=== PATIENT | male | born 1990 | race American Indian/Alaskan Native ===

== ENCOUNTER 2017-12-06 19:58 | Emergency (ER) | payer MEDICAID ==
[2017-12-06 20:35] LABS: Basophils % (Auto) 0.3 % (0.0-1.8); Eosinophils # (Auto) 0.2 K/mm3 (0.0-0.4); Hematocrit 47.6 % (35.5-45.6); Hemoglobin 15.9 gm/dl (11.8-15.2); Lymphocytes # (Auto) 2.7 K/mm3 (1.2-5.4); Lymphocytes % (Auto) 30.1 % (13.4-35.0); Mean Corpuscular HGB Conc 33 % (32-34); Mean Corpuscular Hemoglobin 28 pg (28-32); Mean Corpuscular Volume 85 fl (84-94); Monocytes # (Auto) 0.5 K/mm3 (0.0-0.8); Monocytes % (Auto) 5.2 % (0.0-7.3); Platelet Count 184 K/mm3 (140-440); Red Blood Count 5.62 M/mm3 (3.65-5.03); Red Cell Distribution Width 14.9 % (13.2-15.2)
[2017-12-06 21:01] LABS: BUN/Creatinine Ratio 18; Blood Urea Nitrogen 18 mg/dL (9-20); Calcium 9.9 mg/dL (8.4-10.2); Hemolysis Index 18
--- NOTE | 2017-12-07 10:09 | Emergency Department Report ---
ED Psych HPI - General Chief Complaint: Psych Stated Complaint: PATIENT WANTS TO KILL HIMSELF Time Seen by Provider: 12/07/17 06:28 Source: patient Mode of arrival: Ambulatory - History of Present Illness Initial Comments: This is a 27-year-old patient who arrives in the emergency department with a suitcase but denies homelessness. He states that he has been previously admitted to a psychiatric facility in [place] within the last few months. Apparently he has self-inflicted abrasions to his left arm. He simply points to his arm and states "psych[facility] hospital". He does not want to provide any further information to me. However he did tell the mental health counselor that he wanted to kill himself by walking into traffic. Apparently he's been suffering from chronic depression. He states that he has medicine for that and that he has been taking it. He did not provide any specifics as to his medical regimen however. MD Complaint: suicidal ideation, feels depressed -: month(s), year(s) Associated Psychiatric Symptoms: suicidal ideation History of same: Yes Quality: intermittent Improves With: none Worsens With: none Treatments Prior to Arrival: none If Self Harm: admits thoughts of - Related Data Home Medications Medication Instructions Recorded Confirmed Last Taken Amitriptyline [Elavil] 100 mg PO QHS 12/07/17 12/07/17 Unknown Herminie Carbonate 300 mg PO BID 12/07/17 12/07/17 Unknown clonazePAM 2 mg PO BID 12/07/17 12/07/17 Unknown Allergies Allergy/AdvReac Type Severity Reaction Status Date / Time No Known Allergies Allergy Unverified 12/06/17 20:05 ED Review of Systems ROS: Stated complaint: PATIENT WANTS TO KILL HIMSELF Other details as noted in HPI Comment: Unobtainable due to pts medical conditions ED Past Medical Hx - Past Medical History Previous Medical History?: Yes Hx Kidney Stones: Yes Hx Psychiatric Treatment: Yes (bipolar 2 with psychosis,borderline personality disorder, panic disorder PT) Hx HIV: Yes Additional medical history: PTSD, Anorexia, - Social History Smoking Status: Former Smoker Substance Use Type: None - Medications Home Medications: Home Medications Medication Instructions Recorded Confirmed Last Taken Type Amitriptyline [Elavil] 100 mg PO QHS 12/07/17 12/07/17 Unknown History Herminie Carbonate 300 mg PO BID 12/07/17 12/07/17 Unknown History clonazePAM 2 mg PO BID 12/07/17 12/07/17 Unknown History ED Physical Exam - General Limitations: No Limitations General appearance: alert, in no apparent distress - Head Head exam: Present: atraumatic, normocephalic - Eye Eye exam: Present: normal appearance, PERRL, EOMI. Absent: scleral icterus - ENT ENT exam: Present: mucous membranes moist - Neck Neck exam: Present: normal inspection. Absent: tenderness, meningismus - Respiratory Respiratory exam: Present: normal lung sounds bilaterally. Absent: respiratory distress - Cardiovascular Cardiovascular Exam: Present: regular rate, normal rhythm. Absent: systolic murmur, diastolic murmur, rubs, gallop - GI/Abdominal GI/Abdominal exam: Present: soft, normal bowel sounds. Absent: distended, tenderness, guarding, rebound, rigid - Rectal Rectal exam: Present: deferred - Extremities Exam Extremities exam: Present: other (there are 2 very superficial linear abrasions of the left forearm. The dermis is intact.) - Back Exam Back exam: Present: normal inspection - Neurological Exam Neurological exam: Present: oriented X3, CN II-XII intact. Absent: alert ( lethargic versus uncooperative), motor sensory deficit - Psychiatric Psychiatric exam: Present: depressed, flat affect - Skin Skin exam: Present: warm, dry, intact, normal color. Absent: rash ED Course Vital Signs 12/06/17 12/06/17 12/07/17 20:00 20:05 09:03 Temperature 97.9 F 97.9 F 97.4 F L Pulse Rate 116 H 110 H 70 Respiratory 16 18 18 Rate Blood Pressure 117/88 117/88 Blood Pressure 94/62 [Left] O2 Sat by Pulse 99 99 97 Oximetry - Reevaluation(s) Reevaluation #1: Discussed with mental health counselor. The patient has been 1013 for psychiatric placement. 12/07/17 10:10 ED Medical Decision Making - Lab Data Result diagrams: 12/06/17 20:23 12/06/17 20:23 Laboratory Results - last 24 hr 12/06/17 12/06/17 12/06/17 20:23 20:23 20:23 WBC RBC Hgb Hct MCV MCH MCHC RDW Plt Count Lymph % (Auto) [place] % (Auto) Eos % (Auto) Baso % (Auto) Lymph # [place] # Eos # Baso # Seg Neutrophils % Seg Neutrophils # Sodium 137 Potassium 4.2 Chloride 98.0 Carbon Dioxide 23 Anion Gap 20 BUN 18 Creatinine 1.0 Estimated GFR > 60 BUN/Creatinine Ratio 18 Glucose 86 Calcium 9.9 Salicylates < 0.3 L Acetaminophen < 5.0 L Herminie Plasma/Serum Alcohol 12/06/17 12/06/17 12/07/17 20:23 20:23 07:51 WBC 9.1 RBC 5.62 H Hgb 15.9 H Hct 47.6 H MCV 85 MCH 28 MCHC 33 RDW 14.9 Plt Count 184 Lymph % (Auto) 30.1 [place] % (Auto) 5.2 Eos % (Auto) 2.0 Baso % (Auto) 0.3 Lymph # 2.7 [place] # 0.5 Eos # 0.2 Baso # 0.0 Seg Neutrophils % 62.4 Seg Neutrophils # 5.7 Sodium Potassium Chloride Carbon Dioxide Anion Gap BUN Creatinine Estimated GFR BUN/Creatinine Ratio Glucose Calcium Salicylates Acetaminophen Herminie 0.5 Plasma/Serum Alcohol < 0.01 Critical care attestation.: If time is entered above; I have spent that time in minutes in the direct care of this critically ill patient, excluding procedure time. ED Disposition Clinical Impression: Depression Qualifiers: Depression Type: unspecified Qualified Code(s): F32.9 - Major depressive disorder, single episode, unspecified Suicide gesture Qualifiers: Encounter type: initial encounter Qualified Code(s): X83.8XXA - Intentional self-harm by other specified means, initial encounter Abrasion of left forearm Qualifiers: Encounter type: initial encounter Qualified Code(s): S50.812A - Abrasion of left forearm, initial encounter Disposition: DC/[place]-65 PSY HOSP/PSY UNIT Is pt being admited?: No Does the pt Need Aspirin: No Condition: Stable Referrals: EVITA KENDRICK MD [Primary Care Provider] - 3-5 Days Time of Disposition: 10:16
[2017-12-08 09:44] LABS: Bilirubin,Urine NEG (Negative); Blood,Urine NEG (Negative); Color,Urine Yellow (Yellow); Mucus,Urine 3+ /HPF; Protein,Urine <15 mg/dL mg/dL (Negative); Urobilinogen,Urine < 2.0 mg/dL (<2.0)
[2017-12-08 09:48] LABS: Cannabinoid Screen,Urine PRESUMPTIVE NEGATIVE; Cocaine Screen,Urine PRESUMPTIVE NEGATIVE; Methadone Screen,Urine PRESUMPTIVE NEGATIVE; Opiate Screen,Urine PRESUMPTIVE NEGATIVE
[2017-12-08 09:59] LABS: Amphetamine Screen,Urine PRESUMPTIVE POSITIVE; Benzodiazepines Screen,Urine PRESUMPTIVE POSITIVE
--- NOTE | 2017-12-08 11:33 | Consultation ---
History of Present Illness - Reason for Consult Consult date: 12/08/17 Reason for consult: Mental Health Evaluation Requesting physician: VERNA GALLOWAY - Chief Complaint Chief complaint: "I have a lot on my mind" - History of Present Psychiatric Illness 27-year-old patient who arrives in the emergency department with a suitcase but denies homelessness. Today the patient is calm and cooperative but withdrawn during the assessment. He is vague during the interview, but stated being "very depressed." He stated having a hx of Bipolar DO and DAVID. He stated take he takes [facility] and Klonopin daily. He stated that he has a lot on his mind and would like to talk more tomorrow. He denies HI's and AVH's, but would not confirm or deny SI's when asked reference walking into ongoing traffic. He denies recreational drug use, but positive for amphetamines. He denies alcohol consumption (etoh), Medications and Allergies Allergies Allergy/AdvReac Type Severity Reaction Status Date / Time No Known Allergies Allergy Unverified 12/06/17 20:05 Home Medications Medication Instructions Recorded Confirmed Last Taken Type Amitriptyline [Elavil] 100 mg PO QHS 12/07/17 12/07/17 Unknown History [facility] Carbonate 300 mg PO BID 12/07/17 12/07/17 Unknown History clonazePAM 2 mg PO BID 12/07/17 12/07/17 Unknown History Past psychiatric history - Past Medical History Past Medical History: HIV/AIDS, other (Kidney Stones) Past Surgical History: No surgical history - past Psychiatric treatment and history psychiatric treatment history: Patient is seen outpatient for Bipolar DO. He denies a fam psy hx. - Social History Social history: lives with family Mental Status Exam - Vital signs Last Vital Signs Temp 98.8 F 12/07/17 22:00 Pulse 80 12/07/17 22:00 Resp 18 12/07/17 22:00 BP 90/60 12/07/17 22:00 Pulse Ox 98 12/07/17 22:00 - Exam Narrative exam: MSE: Appearance: calm Behavior: regular eye contact Speech: regular rate and tone Mood: "depressed" withdrawn Affect: flat Thought Process: circumstantial Thought Content: denies HI's and AVH's, the patient would not confirm or deny SI's Motor Activity: ambulatory Cognition: A/O x 3 Insight: variable Judgment: variable Results Result Diagrams: 12/06/17 20:23 12/06/17 20:23 All other labs normal. Assessment and Plan Assessment and plan: Impression: Unspecified Mood DO. R/O Substance Use DO (amphetamines). Hx of DAVID per the patient. Today the patient is calm and cooperative but withdrawn during the assessment. The patient would not confirm or deny SI's. Positive for benzos. DDx: Bipolar DO, R/O Substance Induced Mood DO Recommendation/Plan: Continue 1013 with placement to inpatient psy services. Start [facility] 300 mg PO BID for mood and Klonopin 1 mg PO BID for anxiety. Will follow up with patient in 24 hours.
[2017-12-08] MEDS: ESKALITH PO SCH ×2 (18:00→22:26)
[2017-12-09] MEDS: ESKALITH PO SCH ×2 (11:45→22:00)
--- NOTE | 2017-12-09 12:19 | Progress Note ---
Subjective - Reason for Consult Consult date: 12/09/17 Reason for consult: Psychiatry Follow-up - Chief Complaint Chief complaint: "I do want to " 27-year-old patient who arrives in the emergency department with a suitcase but denies homelessness. Today the patient is cooperative during the assessment. He stated that he wanted to "" when he exited his car on the highway. He stated that he wished that he was hit by a car. He stated that there's no reason for him to live. He was asked why he felt that way, he stated, "I just do." He denies having an plan for suicide. He denies HI's and AVH's. He denies any side effects of his medications. Mental Status Exam - Vital signs Last Vital Signs Temp 97.5 F L 12/08/17 20:39 Pulse 83 12/08/17 20:39 Resp 17 12/08/17 20:39 BP 103/64 12/08/17 20:39 Pulse Ox 96 12/08/17 20:39 - Exam Narrative exam: MSE: Appearance: cooperative Behavior: regular eye contact Speech: regular rate and tone Mood: "depressed" withdrawn Affect: labile Thought Process: circumstantial Thought Content: denies HI's and AVH's Motor Activity: ambulatory Cognition: A/O x 3 Insight: poor Judgment: poor Assessment and Plan Impression: Unspecified Mood DO. R/O Substance Use DO (amphetamines). Hx of DAVID per the patient. Today the patient is cooperative during the assessment. Positive for benzos. DDx: Bipolar DO, R/O Substance Induced Mood DO Recommendation/Plan: Continue 1013 with placement to inpatient psy services. Continue [place] 300 mg PO BID for mood and Klonopin 1 mg PO BID for anxiety. Will follow up with patient in 24 hours.
[2017-12-09 20:44] VITALS: BP 105/77
== END 2017-12-09 23:01 ==
LOC: EEVIPCON 19:58 → ED 19:58
DX: F32.9 Major depressive disorder, single episode, unspecified (principal); S50.812A Abrasion of left forearm, initial encounter; Z87.442 Personal history of urinary calculi; F43.10 Post-traumatic stress disorder, unspecified; F41.0 Panic disorder [episodic paroxysmal anxiety]; Z87.891 Personal history of nicotine dependence; Z79.899 Other long term (current) drug therapy; X83.8XXA Intentional self-harm by other specified means, initial encounter; Y93.89 Activity, other specified; Y92.89 Other specified places as the place of occurrence of the external cause; Y99.8 Other external cause status
CPT/HCPCS: 36415; 80048; 80178; 80307; 81001; 85025; G0480; 80320